=== PATIENT | female | born 1990 | race Caucasian/White ===

== ENCOUNTER 2018-10-15 19:40 | Inpatient (IN) | payer MEDICAID ==
[~2018-10-15] VITALS: Ht 157.5 cm; Wt 68.6 kg
[2018-10-15] MEDS ORDERED: SOD CHLORIDE 0.9% 1,000 ML IV STA (21:28)
[2018-10-15] MEDS ORDERED: ACETAMINOPHEN 325 MG TAB PO ONE (21:30)
[2018-10-15] MEDS ORDERED: GUAI5SYR2 PO (21:54)
[2018-10-15] MEDS ORDERED: ALBUTEROL 0.5% (NEB) 2.5 MG/0.5 ML AMP INH ONE (22:26)
--- NOTE | 2018-10-15 22:29 | ERD ---
ER Documentation Chief Complaint Chief Complaint cough/sob/fever x 2 days. 30 weeks . no abd pain HPI 28-year-old woman complains of cough and fever times 2 days, she feels short of breath as well. Patient denies calf or leg swelling, no chest pain, no abdominal pain, no vomiting or diarrhea. She is 30 weeks by dates and previously normal ultrasound. Patient denies vaginal bleeding or discharge, denies dysuria. ROS All systems reviewed and are negative except as per history of present illness. Medications Home Meds Reported Medications Guaifenesin-Dextromethorphan* (Robitussin* DM) 100MG/10MG/5ML Syrup, 10 ML PO Q4H PRN for COUGH, ML 10/15/18 Allergies Allergies: Coded Allergies: No Known Allergy (Verified , 07/11/10) Uncoded Allergies: nka (Allergy, Mild, 07/11/10) PMhx/Soc None Medical and Surgical Hx: pt denies Medical Hx, pt denies Surgical Hx Hx Alcohol Use: No Hx Substance Use: No Hx Tobacco Use: No Smoking Status: Never smoker FmHx Family History: No diabetes Physical Exam Vitals Vital Signs Date Temp Pulse Resp B/P (MAP) Pulse Ox O2 O2 Flow FiO2 Time Delivery Rate 10/15/18 103.0 125 18 117/57 92 20:13 (77) Physical Exam GENERAL: Well-developed, well-nourished, febrile HEENT: Moist mucous membranes, pink conjunctiva, no cervical spine tenderness or step-off deformities, no goiter, no jaundice or icterus, extraocular movements i ntact without pain. No submandibular induration, and no pharyngeal erythema NEURO: Alert and oriented 3, cranial nerves II through XII intact bilaterally, pupils equal round reactive to light, no focal deficits or facial asymmetry, sensation intact distally Strength 5/5 in upper and lower extremities bilaterally CARDIAC: Tachycardic and regular, no murmurs rubs or gallops LUNGS: Clear bilaterally no wheezing crackles or stridor ABDOMEN: Soft gravid abdomen, no McBurney's point tenderness, no rigidity SKIN: Warm and dry to touch, no abrasions, contusions, or hematomas, no lacerations, no ecchymosis, no target lesions, and without ulcers EXTREMITIES: No clubbing cyanosis or edema, calves are bilaterally symmetrical, no Homans sign, no popliteal cord sign. Distal pulses equal and bilateral PSYCH: Normal affect without agitation or irritability Result Diagram: 10/15/18212210/15/182122 Results 24 hrs Laboratory Tests Test 10/15/18 21:23 10/15/18 21:29 White Blood Count 14.5 10^3/ul Red Blood Count 3.62 10^6/ul Hemoglobin 10.4 g/dl Hematocrit 31.1 % Mean Corpuscular Volume 85.9 fl Mean Corpuscular Hemoglobin 28.7 pg Mean Corpuscular Hemoglobin Concent 33.4 g/dl Red Cell Distribution Width 13.2 % Platelet Count 180 10^3/UL Mean Platelet Volume 10.2 fl Immature Granulocytes % 1.000 % Neutrophils % 89.0 % Lymphocytes % 4.5 % Monocytes % 5.2 % Eosinophils % 0.0 % Basophils % 0.3 % Nucleated Red Blood Cells % 0.0 /100WBC Immature Granulocytes # 0.140 10^3/ul Neutrophils # 12.9 10^3/ul Lymphocytes # 0.7 10^3/ul Monocytes # 0.8 10^3/ul Eosinophils # 0.0 10^3/ul Basophils # 0.0 10^3/ul Nucleated Red Blood Cells # 0.0 10^3/ul Sodium Level 129 mmol/L Potassium Level 3.5 mmol/L Chloride Level 102 mmol/L Carbon Dioxide Level 16 mmol/L Anion Gap 11 Blood Urea Nitrogen 7 mg/dl Creatinine 0.62 mg/dl Est Glomerular Filtrat Rate mL/min > 60 mL/min Glucose Level 103 mg/dl Calcium Level 8.8 mg/dl Total Bilirubin 0.4 mg/dl Direct Bilirubin 0.00 mg/dl Indirect Bilirubin 0.4 mg/dl Aspartate Amino Transf (AST/SGOT) 21 IU/L Alanine Aminotransferase (ALT/SGPT) 19 IU/L Alkaline Phosphatase 154 IU/L Total Protein 6.7 g/dl Albumin 3.5 g/dl Globulin 3.20 g/dl Albumin/Globulin Ratio 1.09 Lipase 42 U/L POC Venous Lactate 1.2 mmol/L Current Medications Medications Dose Sig/Khris Start Time Status Last (Trade) Ordered Route PRN Stop Time Admin Dose Reason Admin 650 mg ONCE ONCE 10/15/18 DC 10/15/18 Acetaminophen PO 21:30 22:04 (Tylenol 10/15/18 21:31 Tab) Sodium 1,000 ml @ Q30M STAT 10/15/18 DC 10/15/18 Chloride 2,000 mls/hr IV 21:28 22:04 10/15/18 21:57 Ceftriaxone 50 ml @ ONCE ONCE 10/15/18 UNV Sodium 100 mls/hr IVPB 22:30 10/15/18 22:59 Azithromycin 250 ml @ ONCE ONCE 10/15/18 UNV 250 mls/hr IVPB 22:30 10/15/18 23:29 Procedures/MDM IV line was established patient was placed on firer kiln rhythm strip revealed a sinus tachycardia at 120 bpm with upright P and T waves. Patient was febrile, blood and urine cultures have been ordered results are pending I will follow-up. I do not suspect sepsis. I administered 2 L normal saline IV and acetaminophen 650 mg p.o. for fever. 1 view chest x-ray performed, read by me reveals a early right middle lobe infiltrate, no pneumothorax, no air under the diaphragm. CBC reveals a leukocytosis of 15, electrolytes are unremarkable although bicarb is at 16, liver function tests normal, urinalysis is pending I will follow-up. Influenza AB swabs were negative Patient's in room air oxygen saturation is 91% I administered albuterol 10 mg via nebulizer as well as ceftriaxone 1 g IV and azithromycin 500 mg IV. Patient was febrile and short of breath and may have early pneumonia I treated her here with IV antibiotics and will admit her to obstetrics department for continued treatment Departure Diagnosis: Primary Impression: Third trimester Additional Impressions: Fever Fever type: unspecified Qualified Codes: R50.9 - Fever, unspecified Respiratory distress Condition: MICHAEL Lima MD Oct 15, 2018 22:29
[2018-10-15] MEDS ORDERED: AZITHROMYCIN 500MG/NS (PMX) 250 ML IVPB ONE (22:30)
[2018-10-15] MEDS ORDERED: CEFTRIAXONE 1 GM/50 ML (PMX) 50 ML IVPB ONE (22:30)
[2018-10-16] MEDS ORDERED: ACETAMINOPHEN 325 MG TAB PO PRN (00:30)
--- NOTE | 2018-10-16 02:35 | CONS ---
Assessment/Plan Assessment/Plan Hospital Course (Demo Recall) 1. Sepsis: Likely secondary to respiratory infection upper versus lower. Cont inue ceftriaxone and azithromycin. IV fluid hydration with normal saline. Lactic acid is within normal values. Will trend. Given the patient also had an elevated alk phos which likely could be reactive however given her as well I will check a right upper quadrant ultrasound. Will also await urine culture and urinalysis results. #2 upper versus lower respiratory infection: Concern was for possible pneumonia, however chest x-ray was read without any infiltrates, possibly atypical. Nonetheless we will continue current antibiotic management at the current time as stated in #1. Await culture results. #3 hyponatremia: Likely secondary to mild dehydration. She is currently recei ving normal saline. Will monitor electrolytes. #4 elevated alk phos: Suspect stress related/reactive however given her history we will also check right upper quadrant ultrasound to rule out any gallbladder pathology. #5 intrauterine : Patient is approximately 30 weeks and 2 days. Contin ue management as per OB. Thank you for this consult we will continue to follow with you Consultation Date/Type/Reason Admit Date/Time Oct 15, 2018 at 23:18 Date of Consultation: Oct 16, 2018 Type of Consult Medicine Reason for Consultation Fever, respiratory infection Requesting Provider: A Date/Time of Note DATE: 10/16/18 TIME: 02:34 Hx of Present Illness Chief complaint: Cough, fever This is a 28-year-old female at approximately 30 weeks of who presented to the emergency department with complaints of cough times 3-day and fever. Patient reports that she started expressing a cough nonproductive approximately 3 days ago. She then developed a fever at home. She did not check her temperature at home. She yesterday does have sick contacts at home including her children as well as her . She denies any chest pain nausea vomiting or diarrhea. She does state that she was coughing a lot and which resulted in some lower abdominal pain but she denies any contractions.. She did not get the flu shot this year. She does report nasal congestion and runny nose as well In the emergency department she was suspected to have a possible pneumonia. She was given azithromycin and ceftriaxone. She was also given a breathing treatment. Allergies: NKDA Medications: Prenatals Const: As per HPI Eyes : No pain discharge or redness or change in visual acuity ENT: As per HPI Respiratory: As per HPI Cardiovascular: No chest pain, palpitation, PND, or edema GI : no change in appetite, abdominal pain, nausea, vomiting, diarrhea, constipation, or change in the color his stool Genitourinary: No dysuria, hematuria, flank pain , discharge or CVA tenderness Musculoskeletal: No joint pain, back pain, neck pain, restricted range of motion in neck or joints Skin: No rash, bruising or hives Neuro: No headache, dizziness, syncope, seizure, focal weakness Endocrine: No polyuria, polydipsia, temperature intolerance Psych: No hallucination, depression, anxiety or suicidal ideation Past Medical History Medical History: no pertinent history Home Meds Reported Medications Ferrous Sulfate* (Ferrous Sulfate*) 325 Mg Tabec, 325 MG PO DAILY, TAB 10/16/18 Vit No.124/Iron/FA ( Vitamin Tablet) 1 Each Tablet, 1 EACH PO DAILY, TAB 10/16/18 Guaifenesin-Dextromethorphan* (Robitussin* DM) 100MG/10MG/5ML Syrup, 10 ML PO Q4H PRN for COUGH, ML 10/15/18 Medications Current Medications Sodium Chloride 1,000 ml @ 125 mls/hr Q8H IV ; Start 10/16/18 at 00:30 Acetaminophen (Tylenol Tab) 650 mg PRN PRN PO Q 6 HRS PRN FEVER; Start 10/16/18 at 00:30 Ferrous Sulfate (Ferrous Sulfate (Ec)) 325 mg AM PO ; Start 10/16/18 at 09:00 Prenat Multivit/ White/Iron/Folic Ac () 1 tab AM PO ; Start 10/16/18 at 09:00 Dextrose/Lactated Ringer's 10 ml @ 20 mls/hr Q30M IV ; Start 10/16/18 at 02:30; Stop 10/16/18 at 03:00 Dextrose/Lactated Ringer's 1,000 ml @ 20 mls/hr Q24H IV ; Start 10/16/18 at 03:00 Allergies: Coded Allergies: No Known Allergy (Verified , 07/11/10) Uncoded Allergies: nka (Allergy, Mild, 07/11/10) Past Surgical History Past Surgical Hx: no surgical history Family History Significant Family History: no pertinent family hx Social History now at approximately 30 weeks Alcohol Use: none Smoking Status: Never smoker Drug Use: none Exam/Review of Systems Exam Vitals Vital Signs Date Temp Pulse Resp B/P (MAP) Pulse Ox O2 O2 Flow FiO2 Time Delivery Rate 10/16/18 98.3 120 18 102/52 93 Room Air 00:24 (69) 10/15/18 21 22:50 Exam General: Patient is currently lying in bed, she is alert and awake she does appear mildly lethargic HEENT: Atraumatic, normocephalic. The pupils are equal, round and reactive. Extraocular motor are intact Neck: Supple with full range of motion. No rigidity or meningismus Chest: Nontender Lungs: Coarse breath sounds bilaterally, nonlabored breathing, nonproductive cough Heart: Sinus tachycardia Abdomen: Gravid, soft , nontender , bowel sounds are present. No guarding no rebound tenderness , No masses or organomegaly. No costovertebral temporal angle mass Extremities: Normal to inspection, no edema no cyanosis Neurologic: Normal mental status, speech normal, cranial nerves II through XII are intact, motor and sensory are intact, no focal weakness Additional Comments PROCEDURE: XR Chest. CLINICAL INDICATION: Chest pain, 30 weeks . TECHNIQUE: AP Portable chest. COMPARISON: None FINDINGS: The cardiomediastinal silhouette is normal. There is mild peribronchial thickening. Bibasilar atelectasis is identified. No pleural effusion is evident. The osseous structures are unremarkable. IMPRESSION: Mild peribronchial thickening and bibasilar atelectasis. 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 Results Result Diagram: 10/15/18212210/15/182122 Results 24hrs Laboratory Tests Test 10/15/18 21:23 10/15/18 21:29 White Blood Count 14.5 H Red Blood Count 3.62 L Hemoglobin 10.4 L Hematocrit 31.1 L Mean Corpuscular Volume 85.9 Mean Corpuscular Hemoglobin 28.7 L Mean Corpuscular Hemoglobin Concent 33.4 Red Cell Distribution Width 13.2 # Platelet Count 180 Mean Platelet Volume 10.2 # Immature Granulocytes % 1.000 H Neutrophils % 89.0 H Lymphocytes % 4.5 L Monocytes % 5.2 Eosinophils % 0.0 Basophils % 0.3 Nucleated Red Blood Cells % 0.0 Immature Granulocytes # 0.140 H Neutrophils # 12.9 H Lymphocytes # 0.7 L Monocytes # 0.8 Eosinophils # 0.0 Basophils # 0.0 Nucleated Red Blood Cells # 0.0 Sodium Level 129 L Potassium Level 3.5 Chloride Level 102 Carbon Dioxide Level 16 L Anion Gap 11 Blood Urea Nitrogen 7 Creatinine 0.62 Est Glomerular Filtrat Rate mL/min > 60 Glucose Level 103 Calcium Level 8.8 Total Bilirubin 0.4 Direct Bilirubin 0.00 Indirect Bilirubin 0.4 Aspartate Amino Transf (AST/SGOT) 21 Alanine Aminotransferase (ALT/SGPT) 19 Alkaline Phosphatase 154 H Total Protein 6.7 Albumin 3.5 Globulin 3.20 Albumin/Globulin Ratio 1.09 Lipase 42 POC Venous Lactate 1.2 Medications Medication Current Medications Sodium Chloride 1,000 ml @ 125 mls/hr Q8H IV ; Start 10/16/18 at 00:30 Acetaminophen (Tylenol Tab) 650 mg PRN PRN PO Q 6 HRS PRN FEVER; Start 10/16/18 at 00:30 Ferrous Sulfate (Ferrous Sulfate (Ec)) 325 mg AM PO ; Start 10/16/18 at 09:00 Prenat Multivit/ White/Iron/Folic Ac () 1 tab AM PO ; Start 10/16/18 at 09:00 Dextrose/Lactated Ringer's 10 ml @ 20 mls/hr Q30M IV ; Start 10/16/18 at 02:30; Stop 10/16/18 at 03:00 Dextrose/Lactated Ringer's 1,000 ml @ 20 mls/hr Q24H IV ; Start 10/16/18 at 03:00 JOY CHILEL Oct 16, 2018 02:35
[2018-10-16 02:55] VITALS: Ht 157.5 cm; Wt 68.6 kg
[2018-10-16] MEDS: SOD CHLORIDE 0.9% 1,000 ML IV SCH ×3 (02:55→16:30)
[2018-10-16 02:56] VITALS: BP 107/52; PULSE 120; RESP 18
[2018-10-16] MEDS: DEXTROSE 5%-LR 1,000 ML IV SCH ×2 (02:58→03:00)
[2018-10-16] MEDS: LEVALBUTEROL (NEB) 1.25 MG/0.5 ML AMP HHN PRN ×2 (02:58→10:51)
[2018-10-16] MEDS ORDERED: DEXTROSE 5%-LR 1,000 ML IV SCH (03:00)
[2018-10-16] MEDS ORDERED: PREN-93 PO (04:23)
[2018-10-16] MEDS ORDERED: FER325 PO (04:23)
[2018-10-16] MEDS: PRENATAL VITAMIN PO SCH (09:01)
[2018-10-16] MEDS: FERROUS SULFATE (EC) 325 MG TAB PO SCH (09:01)
--- NOTE | 2018-10-16 12:07 | HP ---
Date/Time of Note Date/Time of Note DATE: 10/16/18 TIME: 11:57 OB - History Hx of Present Free Text/Dictation Late entry note. Patient seen at 2300 on 10/15/2018 28 years old 002 with single intrauterine at 31 weeks and 1 days with a ALLEN of 12/23/2018 presented to emergency department with complaining of fever, shortness of breath and cough in the last 3 days. She does state that her children as well as her also are sick at home. She states good movement. She denies nausea, vomiting, headache, visual changes, vaginal bleeding or LOF. Chief Complaint: Fever, shortness of breath and cough Estimated Due Date: December 23, 2018 : 3 Para: 2 Spontaneous : 0 Therapeutic : 0 Care: Good Care Ultrasounds: Normal mid trimester US Obstetrical Complications: None Medical Complications: None Past Family/Social History * Past Medical, Surgical, Family and Obstetric Histories reviewed- Unremarkable except on history of present illness OB Admission Exam Vital Signs Vital Signs Vital Signs Date Temp Pulse Resp B/P (MAP) Pulse Ox O2 O2 Flow FiO2 Time Delivery Rate 10/16/18 109 20 95 Nasal 3.0 10:52 Cannula 10/16/18 21 02:58 10/16/18 98.9 107/52 02:56 (70) Physical Exam HEENT: WNL Heart: Rhythm Normal Lungs: Clear Abdomen: WNL Extremities: Normal Membranes: Intact Heart Rate: 120's Accelerations: Accelerations Present Decelerations: No Decelerations Varibility: Moderate Contractions on Admission: None Last 72 hours Lab Results CBC & BMP 10/15/18 21:23 10/16/18 09:53 Liver Function Test 10/15/18 21:23 Alanine Aminotransferase (ALT/SGPT) 19 Albumin 3.5 Alkaline Phosphatase 154 H Aspartate Amino Transf (AST/SGOT) 21 Direct Bilirubin 0.00 Total Protein 6.7 Magnesium Level Test 10/16/18 09:53 Magnesium Level 1.8 OB Assessment/Plan Other plan: 28 years old with single intrauterine at 31 weeks and 1 day with upper versus lower respiratory tract infection. She has received Rocephin and azithromycin at the emergency department continue same antibiotic. She will be seen by hospitalist for further advice - FHR: No sign of metabolic acidosis- Category I - Continuous EFM, toco - CBC, blood type and screen - Obtain record - Please see the orders Admission, expectation discussed in detail with patient. She expressed understanding. All of her questions answered. GERARDO SALCEDO Oct 16, 2018 12:07
--- NOTE | 2018-10-16 12:14 | PN ---
Date/Time of Note Date/Time of Note DATE: 10/16/18 TIME: 12:13 OB Subjective Subjective Subjective Patient seen and examined. She states good movement. She is done states feeling much better after admission. she denies nausea, vomiting, chest pain, abdominal pain, headache, visual changes, vaginal bleeding or LOF. OB Objective Objective Objective Vital Signs Date Temp Pulse Resp B/P (MAP) Pulse Ox O2 O2 Flow FiO2 Time Delivery Rate 10/16/18 109 20 95 Nasal 3.0 10:52 Cannula 10/16/18 21 02:58 10/16/18 98.9 107/52 02:56 (70) General: Patient appears well, alert and oriented, NAD, appropriate mood and affect ABD: gravid, soft, non-tender. Back: No CVA tenderness (B/L) LE: Mild edema. No clubbing, cyanosis, edema, thigh or calf tenderness bilaterally FHT: 125 bpm , moderate variability with acceleration, no deceleration-category I Contractions: None 28 years old with single intrauterine at 30 weeks and 2 days with respiratory tract infection. She has received Rocephin and azithromycin at the emergency department, continue same antibiotic. 1) PNC: - FHR: No sign of metabolic acidosis- Category I - Continuous EFM, toco 2) Respiratory tract infection: She is currently on Rocephin and azithromycin, she was seen by hospitalist today too. Patient discussed over the phone with him. She is okay tthe patient to be discharged home tomorrow on azithromycin and albuterol with follow-up with her primary physician and OB. OB Assessment/Plan Other plan: 28 years old with single intrauterine at 30 weeks and 2 days with respiratory tract infection. 1) PNC: - FHR: No sign of metabolic acidosis- Category I - Continuous EFM, toco 2) Respiratory tract infection: She is currently on Rocephin and azithromycin, she was seen by hospitalist today too which I appreciated. Patient discussed over the phone with hospitalist. Please see his note for detail. Patient may be discharged home tomorrow on azithromycin and albuterol with follow-up with her primary physician and OB. GERARDO SALCEDO Oct 16, 2018 12:13
--- NOTE | 2018-10-16 12:19 | CONS ---
Assessment/Plan Assessment/Plan Assessment/Plan (Daily) #Acute lower respiratory infection - Associated with sepsis, hyponatremia - Differential: viral bronchitis possibly complicated by atypical pneumonia. - Lobar pneumonia ruled out on CXR. - Agree with macrolide antibiotics. Typically Strept pneumoniae causes lobar infiltrates which are not seen, but okay to continue beta-lactams for now. - Likely discharge on erythromycin. #Acute bronchospasm - Cough with hypoxia responsive to beta agonists is likely due to infectious bronchospasm - Patient has no history of asthma - Continue levalbuterol in house - Plan to discharge on albuterol and prednisone taper. Dispo: Monitor overnight, likely D/C in AM Consultation Date/Type/Reason Admit Date/Time Oct 15, 2018 at 23:18 Initial Consult Date 10/16/18 Type of Consult Internal Medicine Reason for Consultation Sepsis, hypoxia Requesting Provider: GERARDO SALCEDO Date/Time of Note DATE: 10/16/18 TIME: 12:12 24 HR Interval Summary Free Text/Dictation Patient had cough with hypoxic episode this morning, required xopinex. Overall poor appetite. Otherwise feeling well, no acute overnight events. Exam/Review of Systems Exam Vitals Vital Signs Date Temp Pulse Resp B/P (MAP) Pulse Ox O2 O2 Flow FiO2 Time Delivery Rate 10/16/18 109 20 95 Nasal 3.0 10:52 Cannula 10/16/18 21 02:58 10/16/18 98.9 107/52 02:56 (70) Intake and Output 10/15/18 10/15/18 10/16/18 1515:00 23:00 07:00 IntakeIntake Total 800 ml OutputOutput Total 250 ml BalanceBalance 550 ml Exam General: Well developed young woman well appearing, no acute distress. HEENT: PERRL, no icterus. Moist mucous membranes with clear oropharynx, no pharyngeal erythema or exudates. Neck: No lymphadenopathy Lungs: Nonlabored breathing with ronchi throughout. Heart: Sinus tachycardia Abdomen: Gravid, soft , nontender , bowel sounds are present. No guarding no rebound tenderness , No masses or organomegaly. No costovertebral temporal angle mass Extremities: Normal to inspection, no edema no cyanosis Results Result Diagram: 10/16/1853 10/16/1853 Results 24hrs Laboratory Tests Test 10/15/18 21:23 10/15/18 21:29 10/16/18 09:53 White Blood Count 14.5 H 16.0 H Red Blood Count 3.62 L 3.22 L Hemoglobin 10.4 L 9.5 L Hematocrit 31.1 L 28.1 L Mean Corpuscular Volume 85.9 87.3 Mean Corpuscular Hemoglobin 28.7 L 29.5 Mean Corpuscular Hemoglobin Concent 33.4 33.8 Red Cell Distribution Width 13.2 # 13.3 Platelet Count 180 156 Mean Platelet Volume 10.2 # 10.0 Immature Granulocytes % 1.000 H 0.900 H Neutrophils % 89.0 H Lymphocytes % 4.5 L Monocytes % 5.2 Eosinophils % 0.0 Basophils % 0.3 Nucleated Red Blood Cells % 0.0 0.0 Immature Granulocytes # 0.140 H 0.150 H Neutrophils # 12.9 H Lymphocytes # 0.7 L Monocytes # 0.8 Eosinophils # 0.0 Basophils # 0.0 Nucleated Red Blood Cells # 0.0 Sodium Level 129 L 133 L Potassium Level 3.5 3.6 Chloride Level 102 108 Carbon Dioxide Level 16 L 18 L Anion Gap 11 7 Blood Urea Nitrogen 7 5 L Creatinine 0.62 0.54 Est Glomerular Filtrat Rate mL/min > 60 > 60 Glucose Level 103 109 Calcium Level 8.8 8.6 Total Bilirubin 0.4 Direct Bilirubin 0.00 Indirect Bilirubin 0.4 Aspartate Amino Transf (AST/SGOT) 21 Alanine Aminotransferase (ALT/SGPT) 19 Alkaline Phosphatase 154 H Total Protein 6.7 Albumin 3.5 Globulin 3.20 Albumin/Globulin Ratio 1.09 Lipase 42 POC Venous Lactate 1.2 Segmented Neutrophils % (Manual) 62 Band Neutrophils % (Manual) 30 H Lymphocytes % (Manual) 4 L Monocytes % (Manual) 4 Neutrophils # (Manual) 10.7 H Band Neutrophils # 4.8 H Lymphocytes (Manual) 0.6 L Monocytes # (Manual) 0.6 Platelet Estimate NORMAL Polychromasia 2+ Anisocytosis 1+ Rouleau 1+ Phosphorus Level 3.0 Magnesium Level 1.8 Medications Medication Current Medications Sodium Chloride 1,000 ml @ 125 mls/hr Q8H IV Last administered on 10/16/18at 10:48; Admin Dose 125 MLS/HR; Start 10/16/18 at 00:30 Acetaminophen (Tylenol Tab) 650 mg PRN PRN PO Q 6 HRS PRN FEVER; Start 10/16/18 at 00:30 Ferrous Sulfate (Ferrous Sulfate (Ec)) 325 mg AM PO Last administered on 10/16/18at 09:01; Admin Dose 325 MG; Start 10/16/18 at 09:00 Prenat Multivit/ [place]/Iron/Folic Ac () 1 tab AM PO Last administered on 10/16/18at 09:01; Admin Dose 1 TAB; Start 10/16/18 at 09:00 Ceftriaxone Sodium 50 ml @ 100 mls/hr Q24H IVPB ; Start 10/16/18 at 23:00 Azithromycin 250 ml @ 250 mls/hr Q24H IVPB ; Start 10/17/18 at 00:00 Levalbuterol (Xopenex Neb) 1.25 mg Q4H RESP THERAPY PRN HHN SHORTNESS OF BREATH Last administered on 10/16/18at 10:51; Admin Dose 1.25 MG; Start 10/16/18 at 03:00 SHAUNA THOMAS MD Oct 16, 2018 12:19
--- NOTE | 2018-10-16 12:35 | DS ---
Date/Time of Note Date/Time of Note DATE: 10/16/18 TIME: 12:30 Obstetrical Discharge Record Final Diagnosis Final Diagnosis: not delivered Other Final Diagnosis 28 years old with single intrauterine at 30 weeks and 2 days with acute lower respiratory tract infection, hypoxemia and bronchitis possibly complicated by atypical pneumonia. She is currently on Rocephin and azithromyci n, she was seen by hospitalist, please see the their note for detail. Patient may be discharged home tomorrow on erythromycin and albuterol with follow-up with her primary physician and OB. heart rate is category 1. She has no uterine contractions. OB ultrasound will be done tomorrow before patient discharged home. Sign and symptom of labor, preeclampsia, kick count discussed in detail with patient. She expressed understanding. All of her questions answered. She will have follow-up with her primary OB Condition on Discharge Physical Assessment Voiding: Yes Bowel Movement: Yes Calf Tenderness: No Patient Condition: Stable GERARDO SALCEDO Oct 16, 2018 12:35
[2018-10-16] MEDS ORDERED: CEFTRIAXONE 1 GM/50 ML (PMX) 50 ML IVPB SCH (23:00)
[2018-10-17] MEDS ORDERED: AZITHROMYCIN 500MG/NS (PMX) 250 ML IVPB SCH
[2018-10-17] MEDS: SOD CHLORIDE 0.9% 1,000 ML IV SCH ×2 (04:47→08:30)
[2018-10-17] MEDS ORDERED: POTASSIUM CHLORIDE 20 MEQ POWDER FOR ORAL SOLN PO ONE (08:00)
[2018-10-17] MEDS: FERROUS SULFATE (EC) 325 MG TAB PO SCH (09:19)
[2018-10-17] MEDS: PRENATAL VITAMIN PO SCH (09:19)
[2018-10-17] MEDS ORDERED: ERYT250T55 PO (11:14)
[2018-10-17] MEDS ORDERED: LEVA1.25 HHN (11:14)
--- NOTE | 2018-10-17 11:15 | PDOCDIS ---
Discharge Instructions DIAGNOSIS Discharge Diagnosis Acute bronchitis Infectious bronchospasm CONDITION [id number] Patient Condition: [id number] Fair HOME CARE INSTRUCTIONS: [id number] Diet Instructions: [id number] Regular ACTIVITY: [id number] Activity Restrictions: [id number] No Restrictions FOLLOW UP/APPOINTMENTS Follow-up Plan 1. Take all medications as prescribed. Complete 13 more days of antibiotics (erythromycin) 2. Use levalbuterol inhaler as needed for severe cough or wheezing. 3. Drink plenty of fluids 4. See your grape cutter as scheduled. SHAUNA THOMAS MD Oct 17, 2018 11:15
[2018-10-17] MEDS ORDERED: predniSONE 20 MG TAB PO SCH (13:30)
--- NOTE | 2018-10-17 15:30 | DS ---
Date/Time of Note Date/Time of Note DATE: 10/17/18 TIME: 15:28 Discharge Summary Admission/Discharge Info Admit Date/Time Oct 15, 2018 at 23:18 Discharge Date/Time Oct 17, 2018 at 11:30 Discharge Diagnosis Acute bronchitis Infectious bronchospasm Patient Condition: Fair Consults Internal Medicine Procedures None Hx of Present Illness Chief complaint: Cough, fever This is a 28-year-old female at approximately 30 weeks of who presented to the emergency department with complaints of cough times 3-day and fever. Patient reports that she started expressing a cough nonproductive approximately 3 days ago. She then developed a fever at home. She did not check her temperature at home. She yesterday does have sick contacts at home including her children as well as her . She denies any chest pain nausea vomiting or diarrhea. She does state that she was coughing a lot and which resulted in some lower abdominal pain but she denies any contractions.. She did not get the flu shot this year. She does report nasal congestion and runny nose as well In the emergency department she was suspected to have a possible pneumonia. She was given azithromycin and ceftriaxone. She was also given a breathing treatment. Allergies: NKDA Medications: Prenatals Hospital Course She was started on IV ceftriaxone and azithromycin. Soon after admission she was found to be hypoxic; required inhaled xopinex and oxygen. XR showed bronchial thickening, no lobar infiltrates By HD#2 symptoms had improved. She did still have productive cough and was tachy to low 100s. Likely atypical pneumonia or bronchitis. Will discharge with erythromycin and xopinex inhaler. Home Meds Active Scripts Erythromycin Stearate (Erythromycin Stearate) 250 Mg Tablet, 1000 MG PO QID, #52 TAB Prov:SHAUNA THOMAS MD 10/17/18 Levalbuterol Hcl* (Levalbuterol Hcl*) 1.25 Mg/0.5 Ml Vial.neb, 1.25 MG HHN Q4H RESP THERAPY PRN for SHORTNESS OF BREATH, #1 INH Prov:SHAUNA THOMAS MD 10/17/18 Reported Medications Ferrous Sulfate* (Ferrous Sulfate*) 325 Mg Tabec, 325 MG PO DAILY, TAB 10/16/18 Vit No.124/Iron/FA ( Vitamin Tablet) 1 Each Tablet, 1 EACH PO DAILY, TAB 10/16/18 Guaifenesin-Dextromethorphan* (Robitussin* DM) 100MG/10MG/5ML Syrup, 10 ML PO Q4H PRN for COUGH, ML 10/15/18 Follow-up Plan 1. Take all medications as prescribed. Complete 13 more days of antibiotics (erythromycin) 2. Use levalbuterol inhaler as needed for severe cough or wheezing. 3. Drink plenty of fluids 4. 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 Primary Care Provider Care Physician No Primary Time spent on discharge: > 30 minutes Pending Labs Laboratory Tests Test 10/17/18 06:21 10/17/18 06:22 White Blood Count 15.3 10^3/ul (4.8-10.8) Red Blood Count 3.03 10^6/ul (4.20-5.40) Hemoglobin 8.9 g/dl (12.0-16.0) Hematocrit 26.8 % (37.0-47.0) Mean Corpuscular Volume 88.4 fl (82.0-101.0) Mean Corpuscular Hemoglobin 29.4 pg (29.0-33.0) Mean Corpuscular 33.2 g/dl (32.0-37.0) Hemoglobin Concent Red Cell Distribution Width 13.7 % (11.5-14.5) Platelet Count 163 10^3/UL (140-415) Mean Platelet Volume 9.8 fl (7.4-10.4) Immature Granulocytes % 1.500 % (0.001-0.429) Neutrophils % 85.3 % (39.0-77.0) Lymphocytes % 8.6 % (15.0-51.0) Monocytes % 4.2 % (0.0-11.0) Eosinophils % 0.1 % (0.0-7.0) Basophils % 0.3 % (0.0-2.0) Nucleated Red Blood Cells % 0.0 /100WBC (0.0-0.0) Immature Granulocytes # 0.230 10^3/ul (0.0-0.031) Neutrophils # 13.1 10^3/ul (1.6-7.5) Lymphocytes # 1.3 10^3/ul (0.8-2.9) Monocytes # 0.6 10^3/ul (0.3-0.9) Eosinophils # 0.0 10^3/ul (0.0-0.5) Basophils # 0.0 10^3/ul (0.0-0.1) Nucleated Red Blood Cells # 0.0 10^3/ul (0.0-0.0) Sodium Level 139 mmol/L (135-144) Potassium Level 3.3 mmol/L (3.5-5.1) Chloride Level 113 mmol/L (97-110) Carbon Dioxide Level 18 mmol/L (21-31) Anion Gap 8 (5-13) Blood Urea Nitrogen 5 mg/dl (7-20) Creatinine 0.50 mg/dl (0.44-1.00) Est Glomerular Filtrat > 60 mL/min (>60) Rate mL/min Glucose Level 85 mg/dl (70-220) Calcium Level 8.2 mg/dl (8.4-10.2) Phosphorus Level 2.7 mg/dl (2.5-4.9) Magnesium Level 1.9 mg/dl (1.7-2.5) Microbiology Date/Time Source Procedure Growth Status 10/16/18 22:20 Clean Catch Urine Urine Culture - Preliminary NO Resulted GROWTH AFTER 24 HOURS SHAUNA THOMAS MD Oct 17, 2018 15:30
== END 2018-10-17 11:30 | disposition home or self-care (01) | DRG 831 ==
LOC: FTE 19:40 → PP1 23:18 → EDBEDREQSVC 23:59 → PP1 10-16 01:20
PROVIDERS: ADMIT Obstetrics & Gynecology; ATTEND Obstetrics & Gynecology
DX: O98.813 Other maternal infectious and parasitic diseases complicating pregnancy, third trimester (principal); A41.9 Sepsis, unspecified organism; J18.9 Pneumonia, unspecified organism; E87.1 Hypo-osmolality and hyponatremia; E86.0 Dehydration; J20.9 Acute bronchitis, unspecified; R09.02 Hypoxemia; Z3A.31 31 weeks gestation of pregnancy
CPT/HCPCS: 36415; 71045; 76705; 76815; 76818; 80048; 80053; 81001; 83605; 83690; 83735; 84100; 85025; 87040; 87086; 87400; 94640; 94644; 94664; 96374; J0456; J0696; J7030; J7121; J7512

== ENCOUNTER 2018-12-16 07:59 | Inpatient (IN) | payer MEDICAID ==
[~2018-12-16] VITALS: Ht 157.5 cm; Wt 70.7 kg
[~2018-12-16 07:59] MED LIST: ERYT250T55 PO; FER325 PO; GUAI5SYR2 PO; LEVA1.25 HHN; PREN-93 PO
[2018-12-16 08:09] VITALS: Ht 157.5 cm; Wt 70.7 kg
--- NOTE | 2018-12-16 08:31 | TRIAGE ---
OB Triage Datetime Report Generated by CPN: 12/16/2018 08:31 Datetime: 12/16/2018 08:12 Time of Arrival: 12/16/2018 07:56 EGA: 39.0 Arrived By: Ambulatory Arrived From: Home Chief Complaint: UC Movement: Present Contractions: Regular Rupture of Membranes: Denies Vaginal Bleeding: Normal Show Vaginal Discharge: Denies Recent Sexual Intercouse: Denies Abdominal Trauma: Not Applicable Patient Complaints: Contractions Time Provider Notified: 12/16/2018 08:20 Provider Notified: [place] Initial Plan: NST, VE Datetime: 12/16/2018 08:05 Vaginal Exam Dilatation (cms): 2.5 Effacement (%): 80 Station: -3 Exam By: TM Datetime: 12/16/2018 08:04 Assessment Type: Triage Maternal Assessment Level of Consciousness: Fully Conscious DTR's/Clonus: DTRs 2+; No Clonus Headache: Denies Blurred Vision: No Respiratory Effort: Unlabored; Regular Rhythm; Equal Expansion Breath Sounds, Left: Clear and Equal Breath Sounds, Right: Clear and Equal Nausea/Vomiting: Denies RUQ Epigastric Pain: Denies Lower Extremities Edema: None Degree: None Upper Extremities Edema: None Degree: None Facial Edema: None Fall Risk Assessment History of Falling: (0) No Secondary Diagnosis: (0) No Ambulatory Aid: (0) Bedrest/Nurse Assist IV Therapy: (0) No Gait: (0) Normal/Bedrest/Immobile Mental Status: (0) Oriented to Own Ability Fall Score: 0 Fall Risk Score Definition: No Risk: No action required Datetime: 10/17/2018 11:30 Stage of : Antepartum Datetime: 10/17/2018 11:16 Comments: monitors off Datetime: 10/17/2018 11:00 Stage of : Antepartum Labor Evaluation Frequency: 0 Monitor Mode: External Resting Tone [place]: Relaxed Heart Rate FHR Baseline Rate: 135 Monitor Mode: External US Variability: Moderate 6-25 bpm Accelerations: 15X15 Decelerations: None Category: Category I Pain Assessment Pain Scale: 0 Pain Presence: None/Denies Pain Type: N/A Membrane Status: Intact Datetime: 10/17/2018 10:00 Stage of : Antepartum Labor Evaluation Frequency: 0 Monitor Mode: External Resting Tone [place]: Relaxed Heart Rate FHR Baseline Rate: 135 Monitor Mode: External US Variability: Moderate 6-25 bpm Accelerations: 15X15 Decelerations: None Category: Category I Pain Presence: None/Denies Pain Type: N/A Datetime: 10/17/2018 09:00 Stage of : Antepartum Labor Evaluation Frequency: 0 Monitor Mode: External Resting Tone [place]: Relaxed Heart Rate FHR Baseline Rate: 130 Monitor Mode: External US Variability: Moderate 6-25 bpm Accelerations: 15X15 Decelerations: None Category: Category I Pain Assessment Pain Scale: 0 Pain Presence: None/Denies Pain Type: N/A Datetime: 10/17/2018 08:08 Assessment Type: Ongoing Assessment Maternal Assessment Level of Consciousness: Fully Conscious DTR's/Clonus: DTRs 2+; No Clonus Headache: Denies Blurred Vision: No Respiratory Effort: Unlabored; Regular Rhythm; Equal Expansion Breath Sounds, Left: Clear and Equal; Rhonchi Breath Sounds, Right: Rhonchi Nausea/Vomiting: Denies RUQ Epigastric Pain: Denies Lower Extremities Edema: None Upper Extremities Edema: None Facial Edema: None Fall Risk Assessment History of Falling: (0) No Secondary Diagnosis: (0) No Ambulatory Aid: (0) Bedrest/Nurse Assist IV Therapy: (0) No Gait: (0) Normal/Bedrest/Immobile Mental Status: (0) Oriented to Own Ability Fall Score: 0 Fall Risk Score Definition: No Risk: No action required Datetime: 10/17/2018 08:00 Stage of : Antepartum Labor Evaluation Frequency: 0 Monitor Mode: External Resting Tone [place]: Relaxed Heart Rate FHR Baseline Rate: 130 Monitor Mode: External US Variability: Moderate 6-25 bpm Accelerations: 15X15 Decelerations: None Category: Category I Pain Assessment Pain Scale: 0 Pain Presence: None/Denies Pain Type: N/A Pain Assessment Comments: PT DENIES FEELING UTERINE CONTRACTION Datetime: 10/17/2018 07:39 Stage of : Antepartum Temperature Route: Oral Datetime: 10/17/2018 07:29 Stage of : Antepartum Datetime: 10/17/2018 07:00 Labor Evaluation Frequency: none Monitor Mode: External Resting Tone [place]: Relaxed Heart Rate FHR Baseline Rate: 130 Monitor Mode: External US FHR Baseline Changes: No Baseline Change Variability: Moderate 6-25 bpm Accelerations: 15X15 Decelerations: None Category: Category I Datetime: 10/17/2018 06:00 Labor Evaluation Frequency: none Monitor Mode: External Resting Tone [place]: Relaxed Heart Rate FHR Baseline Rate: 130 Monitor Mode: External US FHR Baseline Changes: No Baseline Change Variability: Moderate 6-25 bpm Accelerations: 10X10 Decelerations: None Category: Category I Datetime: 10/17/2018 05:00 Labor Evaluation Frequency: none Monitor Mode: External Resting Tone [place]: Relaxed Heart Rate FHR Baseline Rate: 130 Monitor Mode: External US FHR Baseline Changes: No Baseline Change Variability: Moderate 6-25 bpm Accelerations: 15X15 Decelerations: None Category: Category I Datetime: 10/17/2018 04:51 Stage of : Antepartum Temperature Route: Oral Pain Assessment Pain Scale: 0 Pain Presence: None/Denies Pain Goal: 0 Datetime: 10/17/2018 04:00 Labor Evaluation Frequency: none Monitor Mode: External Resting Tone [place]: Relaxed Heart Rate FHR Baseline Rate: 125 Monitor Mode: External US FHR Baseline Changes: No Baseline Change Variability: Moderate 6-25 bpm Accelerations: 15X15 Decelerations: None Category: Category I Datetime: 10/17/2018 03:00 Labor Evaluation Frequency: none Monitor Mode: External Resting Tone [place]: Relaxed Heart Rate FHR Baseline Rate: 130 Monitor Mode: External US FHR Baseline Changes: No Baseline Change Variability: Moderate 6-25 bpm Accelerations: 10X10 Decelerations: None Category: Category I Datetime: 10/17/2018 02:00 Labor Evaluation Frequency: none Monitor Mode: External Resting Tone [place]: Relaxed Heart Rate FHR Baseline Rate: 125 Monitor Mode: External US FHR Baseline Changes: No Baseline Change Variability: Moderate 6-25 bpm Accelerations: 15X15 Decelerations: None Category: Category I Datetime: 10/17/2018 01:00 Labor Evaluation Frequency: none Monitor Mode: External Resting Tone [place]: Relaxed Heart Rate FHR Baseline Rate: 125 Monitor Mode: External US FHR Baseline Changes: No Baseline Change Variability: Moderate 6-25 bpm Accelerations: 15X15 Decelerations: None Category: Category I Datetime: 10/17/2018 00:00 Labor Evaluation Frequency: none Monitor Mode: External Resting Tone [place]: Relaxed Heart Rate FHR Baseline Rate: 130 Monitor Mode: External US FHR Baseline Changes: No Baseline Change Variability: Moderate 6-25 bpm Accelerations: 10X10 Decelerations: None Category: Category I Datetime: 10/16/2018 23:38 Stage of : Antepartum Temperature Route: Oral Pain Assessment Pain Scale: 0 Pain Presence: None/Denies Pain Goal: 0 Datetime: 10/16/2018 23:00 Labor Evaluation Frequency: x1 Monitor Mode: External Duration (sec)2399: 40 Quality: Mild Resting Tone [place]: Relaxed Contraction Comments: pt without complait of uc pain. Heart Rate FHR Baseline Rate: 130 Monitor Mode: External US FHR Baseline Changes: No Baseline Change Variability: Moderate 6-25 bpm Accelerations: 15X15 Decelerations: Variable Category: Category II Datetime: 10/16/2018 22:00 Labor Evaluation Frequency: none Monitor Mode: External Resting Tone [place]: Relaxed Heart Rate FHR Baseline Rate: 135 Monitor Mode: External US FHR Baseline Changes: No Baseline Change Variability: Moderate 6-25 bpm Accelerations: 15X15 Decelerations: None Category: Category I Datetime: 10/16/2018 21:00 Labor Evaluation Frequency: none Monitor Mode: External Resting Tone [place]: Relaxed Heart Rate FHR Baseline Rate: 135 Monitor Mode: External US FHR Baseline Changes: No Baseline Change Variability: Moderate 6-25 bpm Accelerations: 15X15 Decelerations: None Category: Category I Datetime: 10/16/2018 20:45 Assessment Type: Ongoing Assessment Maternal Assessment Level of Consciousness: Fully Conscious DTR's/Clonus: DTRs 2+; No Clonus Headache: Denies Blurred Vision: No Respiratory Effort: Unlabored; Regular Rhythm; Equal Expansion Breath Sounds, Left: Rhonchi Breath Sounds, Right: Rhonchi Nausea/Vomiting: Denies RUQ Epigastric Pain: Denies Lower Extremities Edema: None Degree: None Upper Extremities Edema: None Degree: None Facial Edema: None Fall Risk Assessment History of Falling: (0) No Secondary Diagnosis: (0) No Ambulatory Aid: (0) Bedrest/Nurse Assist IV Therapy: (20) Yes Gait: (0) Normal/Bedrest/Immobile Mental Status: (0) Oriented to Own Ability Fall Score: 20 Fall Risk Score Definition: No Risk: No action required Datetime: 10/16/2018 20:12 Stage of : Antepartum Temperature Route: Oral Pain Assessment Pain Scale: 0 Pain Presence: None/Denies Pain Goal: 0 Datetime: 10/16/2018 20:00 Labor Evaluation Frequency: none Monitor Mode: External Resting Tone [place]: Relaxed Interventions: Side to Side Heart Rate FHR Baseline Rate: 135 Monitor Mode: External US FHR Baseline Changes: No Baseline Change Variability: Moderate 6-25 bpm Accelerations: 15X15 Decelerations: None Category: Category I Datetime: 10/16/2018 19:00 Labor Evaluation Frequency: 0 Monitor Mode: External Resting Tone [place]: Relaxed Heart Rate FHR Baseline Rate: 140 Monitor Mode: External US FHR Baseline Changes: No Baseline Change Variability: Moderate 6-25 bpm Accelerations: 15X15 Decelerations: None Category: Category I Datetime: 10/16/2018 18:57 Stage of : Antepartum Datetime: 10/16/2018 18:00 Stage of : Antepartum Labor Evaluation Frequency: 0 Monitor Mode: External Resting Tone [place]: Relaxed Heart Rate FHR Baseline Rate: 140 Monitor Mode: External US FHR Baseline Changes: No Baseline Change Variability: Moderate 6-25 bpm Accelerations: 15X15 Decelerations: None Category: Category I Pain Assessment Pain Scale: 0 Pain Presence: None/Denies Pain Type: N/A Datetime: 10/16/2018 17:00 Stage of : Antepartum Labor Evaluation Frequency: 0 Monitor Mode: External Resting Tone [place]: Relaxed Heart Rate FHR Baseline Rate: 140 Monitor Mode: External US FHR Baseline Changes: No Baseline Change Variability: Moderate 6-25 bpm Accelerations: 15X15 Decelerations: None Category: Category I Pain Assessment Pain Scale: 0 Pain Presence: None/Denies Pain Type: N/A Datetime: 10/16/2018 16:00 Stage of : Antepartum Labor Evaluation Frequency: 0 Monitor Mode: External Resting Tone [place]: Relaxed Heart Rate FHR Baseline Rate: 145 Monitor Mode: External US FHR Baseline Changes: No Baseline Change Variability: Moderate 6-25 bpm Accelerations: 15X15 Decelerations: None Category: Category I Pain Assessment Pain Scale: 0 Pain Presence: None/Denies Pain Type: N/A Datetime: 10/16/2018 15:18 Comments: NC REMOVED Datetime: 10/16/2018 15:00 Stage of : Antepartum Labor Evaluation Frequency: 0 Monitor Mode: External Resting Tone [place]: Relaxed Heart Rate FHR Baseline Rate: 145 Monitor Mode: External US FHR Baseline Changes: No Baseline Change Variability: Moderate 6-25 bpm Accelerations: 15X15 Decelerations: None Category: Category I Pain Assessment Pain Scale: 0 Pain Presence: None/Denies Pain Type: N/A Datetime: 10/16/2018 14:00 Stage of : Antepartum Labor Evaluation Frequency: 0 Monitor Mode: External Resting Tone [place]: Relaxed Heart Rate FHR Baseline Rate: 145 Monitor Mode: External US FHR Baseline Changes: No Baseline Change Variability: Moderate 6-25 bpm Accelerations: 15X15 Decelerations: None Category: Category I Datetime: 10/16/2018 13:41 Comments: EFM AND TOCO REAPPLIED FOLLOWING BS U/S Datetime: 10/16/2018 13:00 Labor Evaluation Frequency: 0 Monitor Mode: External Resting Tone [place]: Relaxed Heart Rate FHR Baseline Rate: 145 Monitor Mode: External US FHR Baseline Changes: No Baseline Change Variability: Moderate 6-25 bpm Accelerations: 15X15 Decelerations: None Category: Category I Datetime: 10/16/2018 12:35 Comments: O2 TO DOWN FROM 3L TO 2L Datetime: 10/16/2018 12:00 Labor Evaluation Frequency: 0 Monitor Mode: External Resting Tone [place]: Relaxed Heart Rate FHR Baseline Rate: 145 Monitor Mode: External US FHR Baseline Changes: No Baseline Change Variability: Moderate 6-25 bpm Accelerations: 15X15 Decelerations: None Category: Category I Datetime: 10/16/2018 11:38 Pain Assessment Pain Scale: 0 Pain Presence: None/Denies Pain Type: N/A Datetime: 10/16/2018 11:00 Stage of : Antepartum Labor Evaluation Frequency: 0 Monitor Mode: External Resting Tone [place]: Relaxed Heart Rate FHR Baseline Rate: 145 Monitor Mode: External US FHR Baseline Changes: No Baseline Change Variability: Moderate 6-25 bpm Accelerations: 15X15 Decelerations: None Category: Category I Datetime: 10/16/2018 10:00 Stage of : Antepartum Labor Evaluation Frequency: 0 Monitor Mode: External Resting Tone [place]: Relaxed Heart Rate FHR Baseline Rate: 145 Monitor Mode: External US FHR Baseline Changes: No Baseline Change Variability: Moderate 6-25 bpm Accelerations: 15X15 Decelerations: None Category: Category I Datetime: 10/16/2018 09:00 Stage of : Antepartum Labor Evaluation Frequency: 0 Monitor Mode: External Resting Tone [place]: Relaxed Heart Rate FHR Baseline Rate: 145 Monitor Mode: External US FHR Baseline Changes: No Baseline Change Variability: Moderate 6-25 bpm Accelerations: 15X15 Decelerations: None Category: Category I Datetime: 10/16/2018 08:16 Assessment Type: Ongoing Assessment Maternal Assessment Level of Consciousness: Fully Conscious DTR's/Clonus: DTRs 2+; No Clonus Headache: Denies Blurred Vision: No Respiratory Effort: Labored; Regular Rhythm; Equal Expansion Breath Sounds, Left: Diminished Breath Sounds, Right: Diminished Nausea/Vomiting: Denies RUQ Epigastric Pain: Denies Lower Extremities Edema: None Degree: None Upper Extremities Edema: None Degree: None Facial Edema: None Fall Risk Assessment History of Falling: (0) No Secondary Diagnosis: (15) Yes Ambulatory Aid: (0) Bedrest/Nurse Assist IV Therapy: (20) Yes Gait: (0) Normal/Bedrest/Immobile Mental Status: (0) Oriented to Own Ability Fall Score: 35 Fall Risk Score Definition: Low Risk: Please see standard fall prevention interventions Datetime: 10/16/2018 07:30 Labor Evaluation Frequency: 0 Monitor Mode: External Resting Tone [place]: Relaxed Heart Rate FHR Baseline Rate: 135 Monitor Mode: External US FHR Baseline Changes: No Baseline Change Variability: Moderate 6-25 bpm Accelerations: 15X15 Decelerations: None Category: Category I Datetime: 10/16/2018 07:00 Labor Evaluation Frequency: 0 Monitor Mode: External Heart Rate FHR Baseline Rate: 135 Monitor Mode: External US FHR Baseline Changes: No Baseline Change Variability: Moderate 6-25 bpm Accelerations: 15X15 Decelerations: None Category: Category I Datetime: 10/16/2018 06:13 Temperature Route: Oral Datetime: 10/16/2018 06:00 Labor Evaluation Frequency: 0 Monitor Mode: External Heart Rate FHR Baseline Rate: 135 Monitor Mode: External US FHR Baseline Changes: No Baseline Change Variability: Moderate 6-25 bpm Accelerations: 15X15 Decelerations: None Category: Category I Datetime: 10/16/2018 05:00 Labor Evaluation Frequency: 0 Monitor Mode: External Heart Rate FHR Baseline Rate: 135 Monitor Mode: External US FHR Baseline Changes: No Baseline Change Variability: Moderate 6-25 bpm Accelerations: 15X15 Decelerations: None Category: Category I Datetime: 10/16/2018 04:03 Temperature Route: Oral Pain Assessment Pain Scale: 0 Pain Presence: None/Denies Datetime: 10/16/2018 03:56 Labor Evaluation Frequency: 0 Monitor Mode: External Heart Rate FHR Baseline Rate: 130 Monitor Mode: External US FHR Baseline Changes: No Baseline Change Variability: Moderate 6-25 bpm Accelerations: 15X15 Decelerations: None Category: Category I Datetime: 10/16/2018 03:22 Monitor Mode: External Heart Rate FHR Baseline Rate: 125 Monitor Mode: External US FHR Baseline Changes: No Baseline Change Variability: Moderate 6-25 bpm Accelerations: 15X15 Decelerations: None Category: Category I Datetime: 10/16/2018 02:30 Monitor Mode: External Heart Rate FHR Baseline Rate: 115 Monitor Mode: External US FHR Baseline Changes: No Baseline Change Variability: Minimal - Undetectable to <=5 bpm Accelerations: None Decelerations: None Category: Category II Datetime: 10/16/2018 02:00 Assessment Type: Admission Assessment Maternal Assessment Level of Consciousness: Fully Conscious Headache: Denies Blurred Vision: No Respiratory Effort: Unlabored; Regular Rhythm; Equal Expansion Breath Sounds, Left: Clear and Equal Breath Sounds, Right: Clear and Equal Nausea/Vomiting: Denies RUQ Epigastric Pain: Denies Lower Extremities Edema: None Upper Extremities Edema: None Facial Edema: None Fall Risk Assessment History of Falling: (0) No Secondary Diagnosis: (0) No Ambulatory Aid: (0) Bedrest/Nurse Assist IV Therapy: (20) Yes Gait: (0) Normal/Bedrest/Immobile Mental Status: (0) Oriented to Own Ability Fall Score: 20 Fall Risk Score Definition: No Risk: No action required Labor Evaluation Frequency: X5 Monitor Mode: External Duration (sec)2399: 50-60 Heart Rate FHR Baseline Rate: 115 Monitor Mode: External US FHR Baseline Changes: No Baseline Change Variability: Minimal - Undetectable to <=5 bpm Accelerations: None Decelerations: None Category: Category II Datetime: 10/16/2018 01:25 Arrived By: Wheelchair Arrived From: Emergency Dept Datetime: 10/16/2018 01:00 Stage of : Antepartum Temperature Route: Oral Pain Assessment Pain Scale: 0 Pain Presence: None/Denies Datetime: 10/16/2018 00:40 Stage of : Antepartum
[2018-12-16] MEDS ORDERED: LACTATED RINGER'S 1,000 ML IV PRN (08:33)
[2018-12-16] MEDS: LACTATED RINGER'S 1,000 ML IV SCH ×4 (08:47→18:36)
[2018-12-16] MEDS ORDERED: AMPICILLIN 2 GM/NS (PMX) 100 ML IV ONE (09:00)
[2018-12-16] MEDS ORDERED: MINERAL OIL LIGHT 10 ML VIAL TOP PRN (09:00)
[2018-12-16] MEDS ORDERED: OXYTOCIN 30 UNITS/LR 500 ML IV SCH ×4 (09:00→12:00)
[2018-12-16] MEDS ORDERED: IBUPROFEN 600 MG TAB PO PRN (09:00)
[2018-12-16] MEDS ORDERED: LIDOCAINE 1% (MPF) 30 ML INJ INJ PRN (09:00)
[2018-12-16] MEDS ORDERED: BUTORPHANOL 2 MG INJ IV PRN (09:00)
--- NOTE | 2018-12-16 09:25 | PREAC ---
Date/Time of Note Date/Time of Note DATE: 12/16/18 TIME: :24 Anesthesia Eval and Record Evaluation Time Pre-Procedure Interview DATE: 12/16/18 TIME: 09:24 Age 28 Sex female NPO: 8 hrs Preoperative diagnosis labor pain Planned procedure epidural Past Medical History Past Medical History: None Surgery & Anesthesia Issues No known issue Meds Anticoagulation: No Beta Erlin within 24 hr: No Reason Beta Erlin not given: Pt. not on B-Erlin Active Scripts Erythromycin Stearate (Erythromycin Stearate) 250 Mg Tablet, 1000 MG PO QID, #52 TAB Prov:SHAUNA THOMAS MD 10/17/18 Levalbuterol Hcl* (Levalbuterol Hcl*) 1.25 Mg/0.5 Ml Vial.neb, 1.25 MG HHN Q4H RESP THERAPY PRN for SHORTNESS OF BREATH, #1 INH Prov:SHAUNA THOMAS MD 10/17/18 Reported Medications Ferrous Sulfate* (Ferrous Sulfate*) 325 Mg Tabec, 325 MG PO DAILY, TAB 10/16/18 Vit No.124/Iron/FA ( Vitamin Tablet) 1 Each Tablet, 1 EACH PO DAILY, TAB 10/16/18 Guaifenesin-Dextromethorphan* (Robitussin* DM) 100MG/10MG/5ML Syrup, 10 ML PO Q4H PRN for COUGH, ML 10/15/18 Current Medications Lactated Ringer's 1,000 ml @ 125 mls/hr Q8H IV Last administered on 12/16/18at 08:47; Admin Dose 125 MLS/HR; Start 12/16/18 at 08:33 Ampicillin 100 ml @ 100 mls/hr ONCE ONCE IV ; Start 12/16/18 at 09:00; Stop 12/16/18 at 09:59 Ampicillin 50 ml @ 100 mls/hr Q4H IV ; Start 12/16/18 at 12:30 Butorphanol Tartrate (Stadol) 2 mg Q2H PRN IV .PAIN; Start 12/16/18 at 09:00 Lidocaine (Xylocaine 1% (Mpf)) 30 ml ONCE PRN INJ .EPISIOTOMY; Start 12/16/18 at 09:00 Oxytocin/Lactated Ringer's 500 ml @ 500 mls/hr ONCE POST IV ; Start 12/16/18 at 09:00 Oxytocin/Lactated Ringer's 500 ml @ 125 mls/hr POST IV ; Start 12/16/18 at 09:00 Ibuprofen (Motrin) 600 mg ONCE PRN PO .PAIN 1-5; Start 12/16/18 at 09:00 Lactated Ringer's 1,000 ml @ 2,000 mls/hr Q30M PRN IV .ANESTHESIA; Start 12/16/18 at 08:33 Oxytocin/Lactated Ringer's 500 ml @ 0 mls/hr FOR AUGMENTATION IV ; Start 12/16/18 at 09:00 Mineral Oil (Muri-Lube) ONCE PRN TOP EPISIOTOMY; Start 12/16/18 at 09:00; Stop 12/16/18 at 18:00 Meds reviewed: Yes Allergies Coded Allergies: No Known Allergy (Verified , 07/11/10) Uncoded Allergies: nka (Allergy, Mild, 07/11/10) Allergies Reviewed: Yes Labs/Studies Labs Reviewed: Reviewed by anesthesiologist Result Diagram: 12/16/18 0909 Laboratory Tests 12/16/18 09:09 test: N/A Pre-procedure Exam Airway: Adequate mouth opening, Adequate thyromental dist Mallampati: Mallampati III Teeth: Normal Lung: Normal Heart: Normal ASA Physical Status ASA physical status: 2 Emergency: None Pre-operative Attestations Prior to commencing anesthesia and surgery, the patient was re-evaluated, there was verification of: *The patient's identity *The results of appropriate recent lab work and preoperative vital signs *The above evaluation not changing prior to induction *Anesthetic plan, risk benefits, alternative and complications discussed with patient/family; questions answered; patient/family understands, accepts and wishes to proceed. BLAAJI HUYNH DO Dec 16, 2018 09:25
[2018-12-16] MEDS ORDERED: NALOXONE (0.4 MG/ML) INJ IV PRN (09:30)
[2018-12-16] MEDS ORDERED: FENTAnyl 2MCG/ML-ROPIV 0.2% 100 ML BAG EPI SCH (09:30)
[2018-12-16] MEDS: AMPICILLIN 1 GM/NS (PMX) 50 ML IV SCH ×3 (12:30→22:41)
--- NOTE | 2018-12-16 12:58 | HP ---
Date/Time of Note Date/Time of Note DATE: 12/16/18 TIME: 12:55 OB - History Hx of Present Free Text/Dictation December 16, 2018 : 3 Para: 2 Care: Good Care Other Concerns: 28-year-old G3, P2 with IUP at 39 weeks presented with complaint of painful contractions and was noted to be in early labor. She was 2 cm dilated. Antepartum course was completed only for mild anemia otherwise nonsignificant. She was 20 half centimeters/80%/-3, vertex presentation. She was admitted for labor management. GBS negative. Past Family/Social History * Past Medical, Surgical, Family and Obstetric Histories reviewed from chart. Blood Type: O+ Rubella: immune RPR/VDRL: Negative GBS Status: Negative HBsAG: Negative OB Admission Exam Physical Exam HEENT: WNL Lungs: Clear Abdomen: WNL Extremities: Normal Cervical Dilatation: 2cm Effacement: 75% Station: -3 Membranes: Intact Heart Rate: 130's Accelerations: Accelerations Present Decelerations: No Decelerations Varibility: Moderate Contractions on Admission: < 5 Minutes Apart Intensity: Moderate Last 72 hours Lab Results CBC & BMP 12/16/18 09:09 OB Assessment/Plan Reason for admission: active labor Other Assessment: IUP at 39 weeks Early active labor GBS negative Admitted for labor management Anticipate Pain control with epidural if the patient requests CAYLA OSMAN MD Dec 16, 2018 12:58
[2018-12-16] MEDS ORDERED: ONDANSETRON 4 MG INJ ONE (18:30)
[2018-12-16] MEDS ORDERED: ONDANSETRON 4 MG INJ IV STA (18:31)
--- NOTE | 2018-12-16 23:13 | LDN ---
Date/Time of Note Date/Time of Note DATE: 12/16/18 TIME: 23:08 Delivery Summary of normal male Weeks of Gestation 39w Placenta Delivered: Spontaneously, Intact & Complete Meconium: none Episiotomy: No Perineal laceration: 0 Anesthesia type: Epidural Estimated blood loss: 300 Sponge & Needle done & correct: Yes All needle counts correct: Yes Any foreign bodies felt in the: No Delivery Information Sex Sex: male Apgars 1 Minute: 9 5 Minute: 9 Suctioning Nose & mouth suctioned at brenda: Yes Delee suction performed: Yes Umbilical Cord Umbilical cord with: 3 Vessels Cord presentations: no nuchal cord Cord Blood was obtained: Yes Mother & Baby Disposition Disposition Mom & Baby to Maternity; Good: Yes Mom transferred to: Other Baby to NICU: No () CHRIS ENRIQUE MD Dec 16, 2018 23:13
[2018-12-17 00:30] VITALS: BP 100/43; PULSE 65; RESP 20
[2018-12-17] MEDS ORDERED: MISOPROSTOL 200 MCG TAB PR PRN (01:00)
[2018-12-17] MEDS ORDERED: WITCH HAZEL/GLYCERIN PAD PR PRN (01:00)
[2018-12-17] MEDS ORDERED: ZOLPIDEM 5 MG TAB PO PRN (01:00)
[2018-12-17] MEDS ORDERED: LANOLIN HPA 1 PKT TOP PRN (01:00)
[2018-12-17] MEDS ORDERED: OXYCODONE/ASPIRIN (4.88/325) TAB PO PRN ×2 (01:00)
[2018-12-17] MEDS ORDERED: BENZOCAINE 20% 56 ML SPRAY TOP PRN (01:00)
[2018-12-17] MEDS ORDERED: METHYLERGONOVINE 0.2 MG INJ IM PRN (01:00)
[2018-12-17] MEDS ORDERED: OXYTOCIN 30 UNITS/LR 500 ML IV PRN (01:00)
[2018-12-17] MEDS ORDERED: CARBOPROST 250 MCG INJ IM PRN (01:00)
[2018-12-17 03:34] VITALS: BP 91/46; PULSE 66; RESP 20
[2018-12-17] MEDS: IBUPROFEN 600 MG TAB PO SCH ×4 (05:49→23:33)
[2018-12-17 08:50] VITALS: BP 94/50; PULSE 62; RESP 16
[2018-12-17] MEDS: SENNA/DOCUSATE NA (8.6MG/50MG) TAB PO SCH ×2 (08:54→21:02)
[2018-12-17 12:50] VITALS: BP 98/52; PULSE 59; RESP 18
--- NOTE | 2018-12-17 13:46 | QN ---
Documentation Comment no c/o Tmax 99.2 fundus firm non tender lochia min calf neg for tenderness P.P WBC 18.500 from 99857 A stable s/p leukocytosis P repeat CBC in am CHRIS ENRIQUE MD Dec 17, 2018 13:46
[2018-12-17 15:45] VITALS: BP 100/42; PULSE 65; RESP 16
[2018-12-18 04:06] VITALS: BP 98/58; PULSE 86; RESP 20
[2018-12-18] MEDS: IBUPROFEN 600 MG TAB PO SCH ×2 (05:37→11:49)
[2018-12-18 08:00] VITALS: BP 107/58; PULSE 68; RESP 18
[2018-12-18] MEDS ORDERED: DIPHTH/TET/ACEL PERTUSS (ADULT) 0.5 ML VIAL IM* ONE (09:00)
[2018-12-18] MEDS: SENNA/DOCUSATE NA (8.6MG/50MG) TAB PO SCH (09:22)
--- NOTE | 2018-12-18 12:41 | DS ---
Date/Time of Note Date/Time of Note DATE: 12/18/18 TIME: 12:38 Obstetrical Discharge Record Final Diagnosis Final Diagnosis: Term delivered Other Final Diagnosis 28 years old -0-0-3 s/p normal vaginal delivery at 39 weeks. PPD#2. course was unremarkable. She is ambulating and tolerating regular diet. Pain is controlled on current medication. She is voiding without difficulty and had bowel movement. - AF, VSS - Contraception methods with R/B/A/FR discussed - Continue care - Discharge home - Rx and instruction given - Follow up in 2 and 6 weeks at clinic Vaginal Delivery Obstetrical Delivery: Spontaneous Condition on Discharge Physical Assessment Last Vitals: VS - Last 72 Hours, by Label Date Temp Pulse Resp B/P (MAP) Pulse Ox O2 O2 Flow FiO2 Time Delivery Rate 12/18/18 98.2 68 18 107/58 Room Air 08:00 (74) 12/18/18 97.9 86 20 98/58 (71) Room Air 04:06 12/17/18 98.1 65 16 100/42 15:45 (61) 12/17/18 97.7 59 18 98/52 (67) Room Air 12:50 12/17/18 99.2 62 16 94/50 (65) Room Air 08:50 12/17/18 98.1 66 20 91/46 (61) 03:34 12/17/18 98.6 65 20 100/43 Room Air 00:30 (62) Voiding: Yes Bowel Movement: Yes Breast: Soft, non-tender Fundus: Firm Calf Tenderness: No Patient Condition: Stable GERARDO SALCEDO Dec 18, 2018 12:41
--- NOTE | 2018-12-19 13:53 | DELSUM ---
Delivery Summary A-C Datetime Report Generated by CPN: 12/19/2018 13:53 DELIVERY PERSONNEL Earthmoving Labourer: Trejo, Nathalie MATERNAL INFORMATION Delivery Anesthesia: Epidural Medications in Delivery: 30 UNITS PITOCIN Delivery QBL (ml): 300 Placenta Cultured: No Maternal Complications: None Other Maternal Complications: IN LABOR LABOR SUMMARY EDC: 12/23/2018 00:00 No. Babies in Womb: 1 Attempted: No Labor Anesthesia: Epidural LABOR INFORMATION Reason for Induction: Not Applicable Onset of Labor: 12/16/2018 03:00 Complete Dilatation: 12/16/2018 21:55 Oxytocin: Augmentation Group B Beta Strep: Negative Antibiotics # of Doses: 0 Steroids Given: None Reason Steroids Not Administered: Not Applicable MEMBRANES Membranes Rupture Method: Spontaneous Rupture of Membranes: 12/16/2018 12:05 Length of Rupture (hr): 10.40 Amniotic Fluid Color: Clear Amniotic Fluid Amount: Small Amniotic Fluid Odor: None STAGES OF LABOR Stage 1 hr: 18 Stage 1 min: 55 Stage 2 hr: 0 Stage 2 min: 34 Stage 3 hr: 0 Stage 3 min: 3 Total Time in Labor hr: 19 Total Time in Labor min: 32 VAGINAL DELIVERY Episiotomy: None Laceration Extension: N/A Laceration Type: None Initial Vag Sponge Count: 10 Final Vag Sponge Count: 10 Initial Vag Sharps Count: 1 Final Vag Sharps Count: 1 Sponge Count Correct: Yes; Vaginal Sweep Performed Sharps Count Correct: Yes BABY A INFORMATION Infant Delivery Date/Time: 12/16/2018 22:29 Method of Delivery: Vaginal Born in Route : No : N/A Forceps: N/A Vacuum Extraction: N/A Shoulder Dystocia : N/A SHOULDER DYSTOCIA BABY A Delivery Date/Time: 12/16/2018 22:29 PRESENTATION/POSITION BABY A Presentation: Cephalic Cephalic Presentation: Vertex Breech Presentation: N/A PLACENTA INFORMATION BABY A Placenta Delivery Time : 12/16/2018 22:32 Placenta Method of Delivery: Expressed Placenta Status: Delivered SCORES BABY A Heart Rate 1 min: >100 bpm Resp Effort 1 min: Good Cry Reflex Irritability 1 min: Cough/Sneeze/Pulls Away Muscle Tone 1 min: Active Motion Color 1 min: Body [place], Extremit Blue Resuscitation Effort 1 min: Tactile Stimulation SCORE 1 MIN: 9 Heart Rate 5 min: >100 bpm Resp Effort 5 min: Good Cry Reflex Irritability 5 min: Cough/Sneeze/Pulls Away Muscle Tone 5 min: Active Motion Color 5 min: Body [place], Extremit Blue Resuscitation Effort 5 min: Tactile Stimulation SCORE 5 MIN: 9 INFORMATION BABY A Gestational Age at Delivery: 39.0 Gestational Status: Full Term- 39- 40.6 Weeks Outcome : Liveborn Condition : Stable Infant Sex: Male IDENTIFICATION/MEDS BABY A ID Band Number: [id number] ID Band Location: Right Leg; Left Arm Sensor Applied: Yes Sensor Number: [id number] Sensor Location : Cord Clamp Vitamin K Given : Not Given Erythromycin Given: Not Given WEIGHT/LENGTH BABY A Birthweight (gm): 3385 Infant Weight (lb): 7 Infant Weight (oz): 7 Infant Length (in): 19.50 Infant Length (cm): 49.53 CORD INFORMATION BABY A No. Cord Vessels: 3 Nuchal Cord : N/A Cord Blood Taken: Yes Suction: Mouth; Nose ASSESSMENT BABY A Infant Complications: Multiple Variable Decels Physical Findings at Delivery: Within Normal Limits Respirations: Appears Normal Inventory Control Manager/ALS Called : No Care By: JUANITO Transferred To: Remains with Mother
== END 2018-12-18 13:53 | disposition home or self-care (01) | DRG 807 ==
LOC: OBT 07:59 → L-D 07:59 → OBT 08:24 → PP1 12-17 00:15
PROVIDERS: ADMIT Obstetrics & Gynecology; ATTEND Obstetrics & Gynecology
PROC: 10E0XZZ Delivery of Products of Conception, External Approach (ICD-10-PCS; principal; 2018-12-16)
DX: O99.02 Anemia complicating childbirth (principal); Z37.0 Single live birth; D64.9 Anemia, unspecified; Z3A.39 39 weeks gestation of pregnancy; Z23 Encounter for immunization
CPT/HCPCS: 62322; 76815; 85025; 85610; 85730; 86592; 86900; 86901; 87340; 90715; 99464; G0463; J0290; J2405; J2590; J3010; J7120